=== PATIENT | male | born 1930 | race Caucasian/White ===

== ENCOUNTER 2017-10-20 15:32 | Inpatient (IN) | payer MEDICARE, OTHER ==
[2017-10-20] MEDS ORDERED: Sodium Chloride 0.9% 10 ML Syringe FLUSH PRN (15:44)
[2017-10-20] MEDS ORDERED: Sodium Chloride 0.9% 1,000 ML IV ONE (15:44)
[2017-10-20] MEDS ORDERED: cefTRIAXone 1 GM Vial IVPUSH ONE (16:15)
[2017-10-20] MEDS ORDERED: Azithromycin 500 MG in Sodium Chloride 0.9% 250 ML IV ONE (16:21)
--- NOTE | 2017-10-20 16:24 | EDM.PDOC ---
ED HPI GENERAL MEDICAL PROBLEM - General Chief Complaint: General Stated Complaint: confusion Time Seen by Provider: 10/20/17 15:37 Source of Information: Reports: Patient, EMS, Family History Limitations: Reports: Altered Mental Status - History of Present Illness INITIAL COMMENTS - FREE TEXT/NARRATIVE: Patient is brought in via EMS [place]. He is confused and not an accurate historian. His attempts to help with history , but she is also confused. On scene he is described to having been drooling significantly and we will work him up for possible stroke. He states he does not take medications, but then on a separate occasion states he is taking lisinopril and gabapentin. He denies any medical history, states he does go to [place]. Investigation into [facility] chart shows an upcoming appointment for Junctional Tachycardia in [place], but no medications or other encounters are listed. No medical history either. He states he has had his gall bladder and appendix removed. He also states he had surgery on his prostate. Denies cancers of any kind. Denies HTN, diabetes, high cholesterol, kidney or liver disease. The only consistent complaint is that he has a left sided ear infection. He is very hard of hearing. Hearing better on the right side. Onset: Today, Sudden - Related Data Allergies Allergy/AdvReac Type Severity Reaction Status Date / Time No Known Allergies Allergy Verified 10/20/17 16:00 ED ROS GENERAL - Review of Systems Review Of Systems: See Below Constitutional: Reports: No Symptoms HEENT: Reports: Ear Pain Respiratory: Reports: No Symptoms Cardiovascular: Reports: No Symptoms Endocrine: Reports: No Symptoms GI/Abdominal: Reports: No Symptoms : Reports: No Symptoms Musculoskeletal: Reports: No Symptoms Skin: Reports: No Symptoms Neurological: Reports: No Symptoms Psychiatric: Reports: No Symptoms Hematologic/Lymphatic: Reports: No Symptoms Immunologic: Reports: No Symptoms ED EXAM, GENERAL - Physical Exam Exam: See Below Exam Limited By: Other (confusion, hard of hearing) General Appearance: Alert, WD/WN, No Apparent Distress Eye Exam: Bilateral Eye: EOMI, Normal Inspection, PERRL Ears: Normal External Exam Ear Exam: Left Ear: TM Red Nose: Normal Inspection, Normal Mucosa, No Blood Throat/Mouth: Normal Inspection, Normal Lips, Normal Teeth, Normal Gums, Normal Oropharynx, Normal Voice, No Airway Compromise Head: Atraumatic, Normocephalic Neck: Normal Inspection, Supple, Non-Tender, Full Range of Motion Respiratory/Chest: No Respiratory Distress, No Accessory Muscle Use, Chest Non- Tender, Rales (rales bibasilar) Cardiovascular: Normal Peripheral Pulses, Tachycardia, Systolic Murmur Peripheral Pulses: 2+: Posterior Tibial (L), Posterior Tibial (R), Dorsalis Pedis (L), Dorsalis Pedis (R) GI/Abdominal: Normal Bowel Sounds, Soft, Non-Tender, No Organomegaly, No Distention, No Abnormal Bruit, No Mass Back Exam: Normal Inspection, Full Range of Motion, NT Extremities: Normal Inspection, Normal Range of Motion, Non-Tender, Normal Capillary Refill, No Pedal Edema Neurological: Alert, Oriented, CN II-XII Intact, Normal Cognition, Normal Gait, Normal Reflexes, No Motor/Sensory Deficits, Other (patient is alert, he is oriented, however he does have confusion at times) Psychiatric: Normal Affect, Normal Mood Skin Exam: Warm, Dry, Intact, Normal Color, No Rash Lymphatic: No Adenopathy Course - Orders/Labs/Meds Orders: Active Orders 24 hr Category Date Time Status EKG 12 Lead [EKG Documentation Completion] [RC] ROUTINE Care 10/20/17 15:37 Ordered Chest 1V Frontal [CR] Stat Exams 10/20/17 15:37 Ordered Head wo Cont [CT] Stat Exams 10/20/17 15:37 Ordered C-REACTIVE PROTEIN [CHEM] Stat Lab 10/20/17 15:42 Ordered COMPREHENSIVE METABOLIC PN,CMP [CHEM] Stat Lab 10/20/17 15:37 Ordered INR,PT,PROTHROMBIN TIME [COAG] Stat Lab 10/20/17 15:37 Ordered LACTIC ACID [CHEM] Stat Lab 10/20/17 15:42 Ordered PRO B-TYPE NATRIUR PEPT,BNPPRO [CHEM] Routine Lab 10/20/17 15:44 Ordered URINALYSIS W/MICROSCOPIC [UA W/MICROSCOPIC] [URIN] Stat Lab 10/20/17 15:42 Ordered Sodium Chloride 0.9% [Normal Saline] 1,000 ml Med 10/20/17 15:44 Ordered IV ONETIME Sodium Chloride 0.9% [Saline Flush] Med 10/20/17 15:44 Ordered 10 ml FLUSH ASDIRECTED PRN Saline Lock Insert [OM.PC] Routine Oth 10/20/17 15:44 Ordered Medication Orders Sodium Chloride (Normal Saline) 1,000 mls @ 999 mls/hr IV ONETIME ONE Stop: 10/20/17 16:44 Last Admin: 10/20/17 16:12 Dose: 999 mls/hr Sodium Chloride (Saline Flush) 10 ml FLUSH ASDIRECTED PRN PRN Reason: Keep Vein Open Labs: Laboratory Tests 10/20/17 10/20/17 Range/Units 15:45 15:57 WBC 15.0 H (4.0-10.0) x10^3/uL RBC 4.17 L (4.5-6.0) x10^6/uL Hgb 12.8 L (14.0-18.0) g/dL Hct 38.9 L (40.0-52.0) % MCV 93.3 H (78.0-93.0) fL MCH 30.7 (26.0-32.0) pg MCHC 32.9 (32.0-36.0) g/dL RDW Coeff of Brandy 14.1 (10.0-15.0) % Plt Count 571 H (130-400) x10^3/uL Neut % (Auto) 72.2 (50.0-80.0) % Lymph % (Auto) 14.6 L (25.0-50.0) % Hand % (Auto) 13.0 H (2.0-11.0) % Eos % (Auto) 0.0 (0.0-4.0) % Baso % (Auto) 0.2 (0.2-1.2) % POC Troponin I 0.03 (0.00-0.08) ng/mL Meds: Medications Generic Name Dose Route Start Last Admin Trade Name Freq PRN Reason Stop Dose Admin Sodium Chloride 1,000 mls @ 999 mls/hr 10/20/17 15:44 10/20/17 16:12 Normal Saline IV 10/20/17 16:44 999 mls/hr ONETIME ONE Administration Sodium Chloride 10 ml 10/20/17 15:44 Saline Flush FLUSH ASDIRECTED PRN Keep Vein Open Discontinued Medications Generic Name Dose Route Start Last Admin Trade Name Freq PRN Reason Stop Dose Admin Ceftriaxone Sodium 1 gm 10/20/17 16:15 Rocephin IVPUSH 10/20/17 16:16 STAT ONE - Radiology Interpretation Free Text/Narrative:: Chest x-ray shows left lower lobe pneumonia and hyperinflation bilaterally indicating COPD Head CT negative for acute stroke. Departure - Departure Time of Disposition: 16:56 Disposition: Admitted As Inpatient 64 Condition: Fair Clinical Impression: Pneumonia involving left lung, COPD (chronic obstructive pulmonary disease) - Discharge Information *PRESCRIPTION DRUG MONITORING PROGRAM REVIEWED*: Not Applicable *COPY OF PRESCRIPTION DRUG MONITORING REPORT IN PATIENT AMALIA: Not Applicable ED Communication - Discussed Case With (1) Discussed Case With (1): Admitting Provider (Dr. Libby Levy contacted regarding patient admission. She will admit and attend patient.) - Problem List & Annotations (1) COPD (chronic obstructive pulmonary disease) SNOMED Code(s): 79637681 Code(s): J44.9 - CHRONIC OBSTRUCTIVE PULMONARY DISEASE, UNSPECIFIED Status : Acute Priority: High Current Visit: Yes Qualifiers: COPD type: unspecified COPD Qualified Code(s): J44.9 - Chronic obstructive pulmonary disease, unspecified (2) Pneumonia involving left lung SNOMED Code(s): 363614602 Code(s): J18.9 - PNEUMONIA, UNSPECIFIED ORGANISM Status: Acute Priority: High Current Visit: Yes Qualifiers: Pneumonia type: due to unspecified organism Lung location: lower lobe of lung Qualified Code(s): J18.1 - Lobar pneumonia, unspecified organism - My Orders Last 24 Hours: My Active Orders 10/20/17 15:37 EKG 12 Lead [EKG Documentation Completion] [RC] ROUTINE Chest 1V Frontal [CR] Stat Head wo Cont [CT] Stat COMPREHENSIVE METABOLIC PN,CMP [CHEM] Stat INR,PT,PROTHROMBIN TIME [COAG] Stat 10/20/17 15:42 C-REACTIVE PROTEIN [CHEM] Stat LACTIC ACID [CHEM] Stat URINALYSIS W/MICROSCOPIC [UA W/MICROSCOPIC] [URIN] Stat 10/20/17 15:44 PRO B-TYPE NATRIUR PEPT,BNPPRO [CHEM] Routine Sodium Chloride 0.9% [Normal Saline] 1,000 ml IV ONETIME Sodium Chloride 0.9% [Saline Flush] 10 ml FLUSH ASDIRECTED PRN Saline Lock Insert [OM.PC] Routine - Assessment/Plan Last 24 Hours: My Active Orders 10/20/17 15:37 EKG 12 Lead [EKG Documentation Completion] [RC] ROUTINE Chest 1V Frontal [CR] Stat Head wo Cont [CT] Stat COMPREHENSIVE METABOLIC PN,CMP [CHEM] Stat INR,PT,PROTHROMBIN TIME [COAG] Stat 10/20/17 15:42 C-REACTIVE PROTEIN [CHEM] Stat LACTIC ACID [CHEM] Stat URINALYSIS W/MICROSCOPIC [UA W/MICROSCOPIC] [URIN] Stat 10/20/17 15:44 PRO B-TYPE NATRIUR PEPT,BNPPRO [CHEM] Routine Sodium Chloride 0.9% [Normal Saline] 1,000 ml IV ONETIME Sodium Chloride 0.9% [Saline Flush] 10 ml FLUSH ASDIRECTED PRN Saline Lock Insert [OM.PC] Routine Assessment:: copd left lower lobe pneumonia Plan: admit to inpatient. Dr. Levy to admit and attend.
[2017-10-20 16:33] LABS: CHLORIDE,CL 116 mmol/L (98-107); SODIUM,NA 152 mmol/L (136-145)
[2017-10-20] MEDS ORDERED: Lactated Ringers 1,000 ML IV SCH (17:30)
[2017-10-20] MEDS: Lactated Ringers 1,000 ML IV SCH (18:12)
[2017-10-20] MEDS: Gabapentin 300 MG Cap PO SCH (20:05)
--- NOTE | 2017-10-21 00:37 | HP ---
CHIEF COMPLAINT: Confusion with driving the wrong way [place] the interstate. HISTORY OF PRESENT ILLNESS: This is an 86-year-old male, who was traveling apparently from [place] to [place] today, but ended up in [place] going at least 5 miles in the East direction in the [place]. He did not get into an accident. He was found to have pneumonia in the ER. He tells me he has been coughing for about 2 weeks, but has not really been short of breath. He was just in the [facility] on Friday for some ear pain and got some eardrops. Otherwise, he denies any chest pain, stomach pain, fever, chills, nausea, or vomiting. His is with him today. She did feel he was confused, but he is doing better in the ER. He was given a liter of fluids. He has some chronic medical problems including a fall back in June on the ice and then he was supposed to see Cardiology. It sounds like from the referral maybe a heart rhythm problem, but none of that has been arranged yet due to them not being able to travel to [place], but he will see them in [place]. Otherwise, he tells me he has had trouble swallowing for a while. PAST MEDICAL HISTORY: Includes hypothyroidism, history of prostate surgery and BPH. He denies any history of cancer. Surgically, he had an appendectomy, gallbladder surgery and some kind of prostate surgery. ALLERGIES: He has no known allergies. MEDICATIONS: List currently includes: 1. Neurontin 300 mg 3 times a day. He is not sure why he takes it. 2. Levothyroxine 50 mcg daily. 3. Lisinopril 5 mg daily. 4. Flomax 0.4 mg daily. SOCIAL HISTORY: He is , lives with his . He denies any smoking. He is a retired . FAMILY HISTORY: Both parents are . REVIEW OF SYSTEMS: General: No weight changes. No fever. No chills. HEENT: No sore throat, but he has had ear pain. Cardiac: No palpitations. No chest pain. Respiratory: No shortness of breath or wheezing, but he has been coughing. Abdomen: As stated in the HPI. Otherwise, no abdominal pain. Musculoskeletal: No back pain. No neck ache. Neurologic: No headaches. He has had this recent confusion, but it does not appear to be chronic dementia problem from what I am understanding from his . Otherwise, all systems reviewed and found to be negative unless otherwise stated. He reports that he is urinating okay. No burning with urination. PHYSICAL EXAMINATION: Vital Signs: Temperature on admission was 98.6, 106 was his pulse, blood pressure 106/65, respiratory rate 16, O2 of 89 on room air. When I saw him, his pulse was down to 99 and his O2 was 94 on 2 L. General: He is in no acute distress. Heart: Regular rate and rhythm. S1 and S2 without murmur. Respiratory: Lungs sounds are clear to auscultation over the right lung with no crackles or wheezes, but he did have crackles noted in the left base. Abdomen: Nondistended, nontender. Extremities: Warm and dry. No edema. SKIN: Mildly pale, but no red rashes or lesions. Mental Status: He is alert. He was aware. He was in [place], after he had been redirected. He is aware who his is. LABORATORY DATA: Lab work reviewed. Lactic acid elevated 2.6. White count 15, hemoglobin 12.8, platelets of 571. INR 1.1. Sodium 152, potassium 4, chloride 116, bicarb 24, BUN 64, creatinine 1.9, glucose 124, calcium 9.6, bilirubin 0.6, AST 19, ALT 22, alkaline phosphatase 98. Troponin 0.03. CRP 4.3. BNP is 720. Albumin low at 2.7. TSH 0.141. ASSESSMENT: 1. Sepsis due to community-acquired pneumonia, left lower lobe. He did also mention some trouble swallowing. For now, he is on Rocephin IV and IV azithromycin. 2. Community-acquired pneumonia, left lower lobe with cough for the past 2 weeks, could have caused his confusion. 3. Delirium due to pneumonia. This could be a sign of a more severe sepsis. We will repeat a lactic within 3 hours. 4. Left ear pain. On exam, he has no further TM redness. I think we can discontinue his drops. 5. Moderate malnutrition with low albumin. 6. Acute renal failure with prerenal dehydration with elevated BUN and high sodium. I am unsure of his baseline. We will do a bladder scan and continue IV fluids. 7. Hypernatremia. We will calculate his free water deficit and start him on some half-normal saline. 8. Mild anemia. 9. History of BPH. We will continue Flomax. 10.Essential hypertension. He is actually mildly hypotensive and in the setting of sepsis, I am going to hold his LINDA inhibitor. 11.Hypothyroidism. TSH probably appropriate. It is a little abnormal, but could be due to acute illness. We will continue levothyroxine on same dose. 12.Deep vein thrombosis prophylaxis. I will continue Lovenox. 13.Probable history of chronic obstructive pulmonary disease, on nebulizers available p.r.n. 14.Heart arrhythmia. PLAN: For outpatient eval. We will have him on telemetry. Discussed with the patient and his . He has never really thought of code status. We will keep him code level 1. If he wants to change, he will let us know. He is also on Neurontin for unclear reasons. We will try to get his medical records from [place]. The patient will continue on acute cares with IV fluids, repeat lab work tomorrow, antibiotics, repeat lactic acid, and a bladder scan. ANA: 10/20/2017 17:38:07 MODL: 10/21/2017 00:32:40 /[id number] SHO
[2017-10-21] MEDS: Lactated Ringers 1,000 ML IV SCH (02:57)
[2017-10-21] MEDS: Albuterol/Ipratropium 3.0-0.5 MG/3 ML Neb Soln NEB PRN ×2 (04:12→08:09)
[2017-10-21] MEDS: Levothyroxine 50 MCG Tab PO SCH (06:15)
[2017-10-21] MEDS ORDERED: Lisinopril 5 MG Tab PO SCH (08:00)
[2017-10-21] MEDS: Gabapentin 300 MG Cap PO SCH ×3 (08:25→19:39)
[2017-10-21] MEDS: Tamsulosin 0.4 MG Cap.ER PO SCH (08:25)
[2017-10-21] MEDS: Azithromycin 250 MG Tab PO SCH (08:25)
[2017-10-21] MEDS: Enoxaparin 30 MG/0.3 ML Syringe SUBCUT SCH (08:25)
--- NOTE | 2017-10-21 09:51 | PCM.SN ---
- Free Text/Narrative Note: Joan Ritchie provider Address: [address] , [place] [address] Hours: Open now Add full hours
[2017-10-21] MEDS ORDERED: Albuterol 0.083% 2.5 MG/3 ML Neb Soln NEB PRN (10:00)
--- NOTE | 2017-10-21 10:22 | PN ---
Progress Note for VICTORIANO YEBOAH Date: 10/21/2017 Room #: VM.214 SUBJECTIVE: This is hospital day #2 for an 86-year-old admitted with sepsis from pneumonia. He had delirium, was [place] way [place] the [place]. He tells me about this today. He remembers it. He knows he is in [place]. He recognizes me. He tells me he has lost about 25 pounds over last 6 months because he just cannot eat. When he swallows, he coughs. His pneumonia was on the left lower lung. He has been afebrile since admission. His lactic acid was mildly elevated, but did not go up. He has been on IV fluids. He had hypernatremia despite LR at 125 an hour. His sodium went up further. Creatinine did go down from 1.9 to 1.5. 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 He does live independently at home with his . He feels like his cough is a little better today. He is not short of breath. No stomach problems. No diarrhea. OBJECTIVE: Vital Signs: His weight today is 58.2 kg, temperature 98.5, pulse 76, blood pressure 136/68, respiratory rate 18, O2 saturation 98% on 2 L. General: He is in no acute distress. In general overall, he does appear cachectic. Heart: Regular rate and rhythm without murmur. Lungs: Sounds are decreased with crackles over the left base. Right lung is clear. Abdomen: Nondistended and nontender. Extremities: Warm and dry. No edema. Mental Status: He is alert and orientated x3. 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 He is awaiting visit in [place] for the same. ASSESSMENT: 1. Sepsis due to community-acquired pneumonia versus aspiration given the patient's trouble swallowing. He is on IV Rocephin and Zithromax. He is improving with the same. We will continue that. 2. Community-acquired pneumonia. 3. Trouble swallowing. Speech consult has been ordered. 4. Delirium due to pneumonia. Seems to be clearing up. He is making sense today. We will have OT see him for a cognitive evaluation. 5. Moderate malnutrition with weight loss. We will get our dietitian involved. 6. Acute renal failure. He was not retaining any urine. We will continue IV fluids, but change him to half-normal saline for his hypernatremia. 7. Hypernatremia. Adjust fluids to 75 mL/hour of half-normal saline. 8. Mild anemia. 9. History of benign prostatic hypertrophy. 10.Essential hypertension. Lisinopril on hold due to his renal failure and hypotension, which is improved now. 11.Hypothyroidism. 12.Deep venous thrombosis prophylaxis on Lovenox. 13.Probable chronic obstructive pulmonary disease with exacerbation due to pneumonia. We will schedule his nebs, they seem to help. 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 I have not seen any on telemetry, but we will continue with the same. There was some question of a heart rate down to 39; however, it looked like artifact, so we will just continue monitoring. PLAN: At this point, the patient will continue acute cares. We will adjust fluids. We will continue IV antibiotics. We will have speech involved. We will try to get in touch with the [facility] for further records. We will repeat a lactic acid tomorrow. 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
[2017-10-21] MEDS: Albuterol/Ipratropium 3.0-0.5 MG/3 ML Neb Soln NEB SCH ×4 (10:46→22:41)
[2017-10-21] MEDS: Sodium Chloride 0.45% 1,000 ML IV SCH (11:04)
[2017-10-21] MEDS: cefTRIAXone 1 GM Vial IVPUSH SCH (16:01)
[2017-10-22] MEDS: Sodium Chloride 0.45% 1,000 ML IV SCH ×2 (00:24→16:15)
[2017-10-22] MEDS: Albuterol/Ipratropium 3.0-0.5 MG/3 ML Neb Soln NEB SCH ×6 (02:17→22:40)
[2017-10-22] MEDS: Levothyroxine 50 MCG Tab PO SCH (06:31)
[2017-10-22 07:23] LABS: ANION GAP 9.8 mmol/L (10-20)
[2017-10-22] MEDS: Gabapentin 300 MG Cap PO SCH ×3 (08:17→19:25)
[2017-10-22] MEDS: Azithromycin 250 MG Tab PO SCH (08:17)
[2017-10-22] MEDS: Tamsulosin 0.4 MG Cap.ER PO SCH (08:17)
[2017-10-22] MEDS: Enoxaparin 30 MG/0.3 ML Syringe SUBCUT SCH (08:17)
--- NOTE | 2017-10-22 10:28 | PN ---
Progress Note for VICTORIANO YEBOAH Date: 10/22/2017 Room #: VM.214 SUBJECTIVE: This is hospital day #3 on an 86-year-old admitted with sepsis due to a left lower lobe pneumonia. He was having delirium and driving the [place] way [place] the interstate. He continues to have a cough but is not short of breath. He has been afebrile. He has no chest pain. No abdominal pain. No diarrhea. He has been on IV antibiotics now, Rocephin day #3 and oral Zithromax. He was seen by speech. They were recommending, he continue his nectar thick liquids. He feels like he is tolerating that diet and coughing less. He is enjoying the vanilla Ensure. He is in good spirits. He is alert and orientated x3. PHYSICAL EXAMINATION: VITAL SIGNS: Weight 59.3 kg, temperature 97.2, blood pressure 107/53, respiratory rate 95, O2 93% on room air but 95% on 2 L. GENERAL: He is in no acute distress. HEART: Regular rate and rhythm with murmur. LUNGS: Sounds are decreased over that left base with crackles. ABDOMEN: Has positive bowel sounds. It is soft, nontender. EXTREMITIES: Warm and dry. No edema. MENTAL STATUS: He is alert and orientated x3. LABORATORY DATA: Lab work does show him to have a white count improved to 13.8, hemoglobin 10.8, platelets 382. Sodium 149, potassium 3.8, chloride 116, bicarb 27, BUN 39, creatinine 1.4, glucose 116, lactic back up to 2.5 from 2.1 yesterday. ASSESSMENT AND PLAN: 1. Severe sepsis with delirium, related to a community-acquired left lower lobe pneumonia. Other considerations could be aspiration given trouble swallowing. He is clinically improving on Rocephin and azithromycin. We will continue with the same. 2. Community-acquired pneumonia. Sputum cultures are showing some gram- positive cocci and gram-positive rods. We will await further identification. 3. Dysphagia. He has been working with speech, will have an outpatient video swallow. 4. Delirium due to pneumonia. He is improving. OT has been ordered for cognitive assessment. 5. Moderate malnutrition with weight loss. He is on the Boost. We will have the dietitian involved as well to speak with him about high-calorie, high- protein foods. 6. Acute renal failure. His creatinine is down near his baseline now at 1.3. He is 1.4 today. 7. Hyponatremia, improving. We will continue IV fluids, half-normal saline 75 mL/h. Recheck tomorrow. 8. Mild anemia. His hemoglobin is stable at 10.8. 9. Deep vein thrombosis prophylaxis. He has been on Lovenox. 10.History of benign prostatic hyperplasia. He is voiding okay. He is on Flomax. 11.Essential hypertension. Lisinopril had been on hold. Blood pressures are adequate. We are not going to restart at this point. 12.Probable chronic obstructive pulmonary disease, stable without exacerbation. 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 He has had no events on our telemetry in 48 hours. We will go ahead and discontinue this. 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 PLAN: At this point, the patient will continue acute cares. He will continue IV antibiotics and IV fluids. We will continue having him work with therapies. We will repeat another lactic acid tomorrow as it went up. We will continue to monitor off oxygen. He will continue Neurontin. MKA: 10/22/2017 09:30:09 MODL: 10/22/2017 10:00:20 /[id number]
[2017-10-22] MEDS: cefTRIAXone 1 GM Vial IVPUSH SCH (16:16)
--- NOTE | 2017-10-22 19:08 | PCM.SN ---
- Free Text/Narrative Note: Asked by nursing staff this pm to look at patient's left hand. Was noted to be swollen distal to the IV site this afternoon. IV has been flushed and does remain functional. Patient has not complained of any pain or redness. On exam, does have diffuse pitting edema to the left hand. IV in place overlying the wrist and is normal in appearance. No erythema or tenderness to palpation. Recommend wrapping the hand with LINDA wraps leaving the IV site uncovered. Notify me if worsening; otherwise, can be checked by attending provider in the am.
[2017-10-23] MEDS: Albuterol/Ipratropium 3.0-0.5 MG/3 ML Neb Soln NEB SCH ×3 (03:48→13:10)
[2017-10-23] MEDS: Levothyroxine 50 MCG Tab PO SCH (06:33)
[2017-10-23] MEDS: Sodium Chloride 0.45% 1,000 ML IV SCH (06:38)
[2017-10-23 07:12] LABS: ANION GAP 7.1 mmol/L (10-20); CHLORIDE,CL 114 mmol/L (98-107); SODIUM,NA 145 mmol/L (136-145)
[2017-10-23] MEDS: Gabapentin 300 MG Cap PO SCH ×2 (08:47→12:34)
[2017-10-23] MEDS: Tamsulosin 0.4 MG Cap.ER PO SCH (08:47)
[2017-10-23] MEDS: Enoxaparin 30 MG/0.3 ML Syringe SUBCUT SCH (08:47)
[2017-10-23] MEDS: Azithromycin 250 MG Tab PO SCH (08:47)
[2017-10-23] MEDS ORDERED: Amoxicillin/Clavulanate K 875-125 MG Tab PO SCH (09:30)
--- NOTE | 2017-10-23 19:45 | DISCH ---
PRIMARY DISCHARGE DIAGNOSES: 1. Severe sepsis due to an episode of aspiration pneumonia, left lower lobe cultures negative. 2. Delirium related to sepsis with driving the wrong way [place] the interstate. The patient is informed he should not drive until visiting with his primary care. He voluntarily agrees to not drive and his family is also aware. 3. Dysphagia, working with speech therapy, the patient's video swallow arranged. He denies any history of stroke. 4. Weight loss about 25 pounds over 6 months per patient report. 5. Moderate malnutrition, getting boost supplements. Encouraged to have a high-calorie diet. 6. Acute renal failure on chronic kidney disease, baseline creatinine is around 1.3. His creatinine was 1.5 on admission, went down to 1.0 on discharge. 7. Hypernatremia, improved with IV fluids. Sodium 145 on discharge. 8. Essential hypertension controlled. Lisinopril held during his stay due to lower blood pressures, but restarted on discharge. 9. Mild anemia. His hemoglobin was stable at 10.2 on discharge. 10.History of junctional tachycardia. Outpatient arrangements for Cardiology were already in place due to a fall he had back in June. 11.Polyneuropathy. He is on Neurontin. 12.Probable chronic obstructive pulmonary disease. He did get his some nebulizers during his stay, but had no wheezing and declined any nebulizers on discharge. I think he will do fine without them. 13.History of benign prostatic hypertrophy. He is on Flomax. 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 Because he was confused, he was brought to the local hospital and evaluated for any medical problems. He was found to have tachycardia with heart rates of 106. He was afebrile, but O2 sats were only 89% on room air. He had been coughing for about 2 weeks and he was found to have a left lower lobe pneumonia on x-ray. He was initiated on IV Rocephin and Zithromax. After speaking with the patient, he had mentioned he was having some choking and coughing while eating. However, he was improving with the Rocephin so that was continued. He had a white count of 15,000, it went down to 8.1 on discharge. He had a sodium of 152. He was placed on LR and later half-normal saline and his sodium was 145 on discharge. Lactic acid was originally 2.6, went down to 2.1, but back up to 2.5 and down to 1 on the day of discharge. He was able to be weaned off oxygen, saturating in the mid 90s on room air. He was up. He was working with therapies. They felt he would be stable for discharge on 10/23/2017. He was also seen by speech therapy who felt that he would benefit from nectar thickened liquids and an outpatient video swallow. He otherwise had a cognitive assessment, which was performed on 10/21/2017, his second hospital date and OT showed the patient to have a mini-mental of 16/30, 53% in norms, indicating about moderate dementia. He had issues in all areas except registration. He scored a 3.3/5.8 on his ACL, which is 57% of norm. When I told his son that he had some memory loss, he did not seem too surprised by this. It was recommended that the patient should have 24-hour supervision and he does live with his . On the date of discharge, I discussed discharge plan with his primary care provider, Joan Ritchie in [place]. Otherwise, the patient was afebrile throughout his stay. He states he slept poorly on the night of discharge, but otherwise had improved cough. He had no shortness of breath. No chest pain. No abdominal pain or diarrhea. Discharge weight was 60.9 kg, temperature 98.2, pulse 64, blood pressure 127/66, respiratory rate 16, O2 of 93% on room air. In general, he is in no acute distress. His heart is regular rate and rhythm with murmur appreciated. Lungs sounds are decreased over the left base, but crackles are greatly improved and no longer present as compared to his exam earlier in the week. His right lung is completely clear. His abdomen is nondistended, nontender. He is in general thin elderly male. His extremities are warm and dry. No edema. No calf tenderness. His mental status, he is alert and orientated x3. The patient was on Lovenox for his stay, but did refuse his dose this morning. DISCHARGE PLANS AND INSTRUCTIONS: He will follow up with Joan Ritchie at [facility] within the next 1-2 weeks for post hospital followup. He will take Augmentin 875 twice daily for another 4 doses on discharge. He will have a swallow eval in [place], I believe on 10/29/2017. He will have home health on discharge and he was advised no driving. He will be on nectar thickened liquids as well. Home health [id number] occurred on 10/23/2017 and the primary reason for home health is teaching and assessment for patient with a new diagnosis of aspiration pneumonia with trouble swallowing and weight loss. He will need to have monitoring of his liquids and instruction on how to use thickening. He may also have speech therapy assist with this as well. He would benefit from some PT assessments as well as cognitive OT assessments to ensure home safety and a home safety eval. He is homebound due to his impaired cognition and he is unable to drive. He requires assist of another to leave his home. I will periodically review this plan of care or it could be faxed to Joan Ritchie, his local provider. Greater than 30 minutes spent on the discharge process. MKA: 10/23/2017 11:39:06 MODL: 10/23/2017 14:28:49 /[id number]
== END 2017-10-23 13:20 | disposition swing bed (61) | DRG 871 ==
LOC: VM.ED 15:32 → VM.MS 16:42
PROVIDERS: ADMIT Internal Medicine; ATTEND Internal Medicine
DX: J44.0 Chronic obstructive pulmonary disease with (acute) lower respiratory infection (principal); J18.9 Pneumonia, unspecified organism; H66.92 Otitis media, unspecified, left ear; A41.9 Sepsis, unspecified organism; J69.0 Pneumonitis due to inhalation of food and vomit; E44.0 Moderate protein-calorie malnutrition; N17.9 Acute kidney failure, unspecified; E87.1 Hypo-osmolality and hyponatremia; I47.1 Supraventricular tachycardia; Z68.1 Body mass index [BMI] 19.9 or less, adult; J44.9 Chronic obstructive pulmonary disease, unspecified; R65.20 Severe sepsis without septic shock; I12.9 Hypertensive chronic kidney disease with stage 1 through stage 4 chronic kidney disease, or unspecified chronic kidney disease; E03.9 Hypothyroidism, unspecified; N40.0 Benign prostatic hyperplasia without lower urinary tract symptoms; I44.0 Atrioventricular block, first degree; R13.10 Dysphagia, unspecified; D64.9 Anemia, unspecified; N18.9 Chronic kidney disease, unspecified; F03.90 Unspecified dementia, unspecified severity, without behavioral disturbance, psychotic disturbance, mood disturbance, and anxiety; G62.9 Polyneuropathy, unspecified; Z91.81 History of falling; Z98.890 Other specified postprocedural states; Z79.899 Other long term (current) drug therapy
CPT/HCPCS: 36415; 70450; 71045; 80048; 80053; 81001; 83605; 83880; 84443; 84484; 85025; 85610; 86140; 87040; 87070; 87205; 92526-GN; 92610-GN; 93005; 94640; 94760; 96365; 96375; 97110-GP; 97116-GP; 97161-GP; 97530-GP; 99284-GF; 99285; A9270-GY; G0515-GO; J0456; J0696; J1650; J7030; J7050; J7120